=== PATIENT | female | born 1935 | race Caucasian/White ===

== ENCOUNTER 2017-02-11 14:55 | Emergency (ER) | payer OTHER ==
[~2017-02-11] VITALS: Ht 152.4 cm; Wt 50.4 kg
[~2017-02-11 14:55] MED LIST: ATENOLOL50 MG PO; HYDROCHLOROTHIA25 MG PO; MIRTAZAPINE30 MG PO
[2017-02-11] MEDS ORDERED: ATORVASTATIN CA10 MG PO (15:19)
[2017-02-11] MEDS ORDERED: BUSPAR5 MG PO (15:19)
[2017-02-11] MEDS ORDERED: DIVALPROEX SOD125 M1 PO (15:19)
[2017-02-11] MEDS ORDERED: MEMANTINE HCL5 MG PO (15:20)
[2017-02-11 15:32] LABS: HEMATOCRIT 43.8 % (36.0-46.0); MCH 26.4 PG (29.0-34.0); MCHC 32.9 G/DL (30.0-36.0); MCV 80.2 FL (83-99); MEAN PLAT.VOLUME 10.6 uM^3 (9.5-12.4); PLATELET COUNT 538 K/uL (156-360); RBC DIS.WIDTH-CV 13.8 % (11.8-14.6); RBC DIS.WIDTH-SD 39.8 % (39-53); RED BLOOD COUNT 5.46 M/uL (3.80-5.20); WHITE BLOOD COUNT 6.3 K/uL (4.1-10.2)
[2017-02-11 15:42] LABS: CHLORIDE 91 mEq/L (99-109); SODIUM 137 mEq/L (136-147)
[2017-02-11 15:44] LABS: GLUCOSE 195 mg/dL (70-99)
[2017-02-11 15:46] LABS: ANION GAP 16 MEQ/L (2-14); TOTAL BILIRUBIN 0.5 mg/dL (0.0-1.0)
[2017-02-11 15:48] LABS: ALKALINE PHOSPHATASE 96 IU/L (3-129); GFR ESTIMATE (CALCULATED) 38 mL/min/
[2017-02-11 15:49] LABS: UREA NITROGEN (BUN) 30 mg/dL (9-23)
[2017-02-11 16:32] LABS: ADD MIUA? YES; BILIRUBIN NEGATIVE; BLOOD MODERATE; COLOR AMBER ((YELLOW)); GLUCOSE (STRIP) NEGATIVE; KETONES 20; LEUKOCYTES LARGE; NITRITE NEGATIVE; PROTEIN (STRIP) 100; SPECIFIC GRAVITY 1.018 (1.000-1.030); UROBILINOGEN 0.2 MG/DL (0.2-1.0)
[2017-02-11 17:08] LABS: RED BLOOD CELLS 15-20 /HPF (0-5); WHITE BLOOD CELLS TNTC /HPF (0-5)
[2017-02-11 17:09] LABS: BACTERIA 2+ /HPF; CASTS PRESENT /LPF; CRYSTALS NONE SEEN; EPITHELIAL CELLS 3+ /HPF; HYALINE CASTS 0-5 /LPF; MUCUS NONE SEEN /LPF; UCUL ADDED? YES
[2017-02-11] MEDS ORDERED: KEFLEX250 MG PO (17:54)
[2017-02-11] MEDS ORDERED: K-DUR20 MEQ PO (17:54)
[2017-02-11 19:58] VITALS: BP 117/58
== END 2017-02-11 20:01 ==
LOC: EME 14:55
DX: R41.82 Altered mental status, unspecified (principal); N39.0 Urinary tract infection, site not specified; E87.6 Hypokalemia; F03.90 Unspecified dementia, unspecified severity, without behavioral disturbance, psychotic disturbance, mood disturbance, and anxiety; E78.5 Hyperlipidemia, unspecified; I10 Essential (primary) hypertension; Z87.891 Personal history of nicotine dependence
CPT/HCPCS: 80053; 81003; 85027; 87077; 87086; 87186